=== PATIENT | female | born 1990 | race Caucasian/White ===

== ENCOUNTER 2018-08-10 15:09 | Emergency (ER) | payer SELFPAY ==
--- NOTE | 2018-08-10 16:08 | UC ---
Ear Complaint HPI - HPI Summary HPI Summary: 27 year old female present with 1 week history of left ear pain. Denies fever, chills, ear drainage, tinnitus, hearing loss, vertigo, nasal congestion, runny nose, sore throat, or cough. - History of Current Complaint Chief Complaint: UCEar Stated Complaint: THROAT AND EAR COMPLAINT Time Seen by Provider: 08/10/18 15:57 Hx Obtained From: Patient Hx Last Menstrual Period: iud Pain Intensity: 5 - Allergies/Home Medications Allergies/Adverse Reactions: Allergies Allergy/AdvReac Type Severity Reaction Status Date / Time Penicillins Allergy Hives/Diff. Verified 08/10/18 15:29 Breathing/I tching Home Medications: Home Medications Acetaminophen [Tylenol] 325 mg PO Q8HR PRN 08/10/18 [History Confirmed 08/10/18] Iud 08/10/18 [History] PMH/Surg Hx/FS Hx/Imm Hx Previously Healthy: Yes - Denies significant PMH - Surgical History Surgical History: None - Family History Known Family History: Positive: Non-Contributory - Social History Occupation: Employed Full-time Lives: Alone Alcohol Use: Rare Substance Use Type: None Smoking Status (MU): Never Smoked Tobacco Review of Systems All Other Systems Reviewed And Are Negative: Yes Constitutional: Negative: Fever, Chills Eyes: Negative: Drainage, Eye Redness ENT: Positive: Ear Ache. Negative: Sore Throat, Nasal Discharge, Sinus Congestion, Sinus Pain/Tenderness Respiratory: Negative: Cough Cardiovascular: Positive: Negative Gastrointestinal: Positive: Negative Genitourinary: Positive: Negative Musculoskeletal: Positive: Negative Neurological: Positive: Negative Psychological: Positive: Negative Is Patient Immunocompromised?: No Physical Exam - Summary Physical Exam Summary: GENERAL APPEARANCE: Well developed, well nourished, alert and cooperative, and appears to be in no acute distress. EYES: Conjunctiva clear. No drainage. Vision is grossly intact. EARS: External auditory canals clear, right TM opaque with good cone of light, left TM opaque with few air bubbles noted, no erythema, hearing grossly intact. NOSE: No nasal discharge. THROAT: Pharynx normal. No tonsilar inflammation, swelling, exudate, or lesions. Uvula midline. Oral cavity normal. Teeth and gingiva in good general condition. NECK: Neck supple, non-tender without lymphadenopathy. CARDIAC: Normal S1 and S2. No S3, S4 or murmurs. Rhythm is regular. There is no peripheral edema, cyanosis or pallor. Extremities are warm and well perfused. Capillary refill is less than 2 seconds. Peripheral pulses intact. LUNGS: Clear to auscultation without rales, rhonchi, wheezing or diminished breath sounds. ABDOMEN: Positive bowel sounds. Soft, nondistended, nontender. No guarding or rebound. No masses or hepatosplenomegally. MUSKULOSKELETAL: ROM intact to all extremities. No joint erythema or tenderness. Normal muscular development. Normal gait. SKIN: Skin normal color, texture and turgor with no lesions or eruptions. Triage Information Reviewed: Yes Vital Signs: Initial Vital Signs Temp 99.5 F 08/10/18 15:30 Pulse 72 08/10/18 15:30 Resp 18 08/10/18 15:30 BP 103/69 08/10/18 15:30 Pulse Ox 100 08/10/18 15:30 Vital Signs Reviewed: Yes Ear Complaint Course/Dx - Course Course Of Treatment: 27 year old female present with 1 week history of left ear pain. Denies fever, chills, ear drainage, tinnitus, hearing loss, vertigo, nasal congestion, runny nose, sore throat, or cough. Afebrile. VSS. Exam was remarkable for some air bubbles behind the left TM without erythema. Will treat for a left serous otitis likely from eustachian tube dysfunction with fluticasone nasal spray 2 sprays each nostril twice daily and OTC analgesics. She is to return here or follow up with PCP in 7 days if no improvement. Anticipatory guidance and warning symptoms reviewed with patient. Verbalizes understanding and agrees with POC. - Differential Dx/Diagnosis Differential Diagnosis/HQI/PQRI: Cerumen Impaction, Otitis Externa, Otitis Media , Perforated TM Provider Diagnosis: Acute serous otitis media of left ear Discharge - Sign-Out/Discharge Documenting (check all that apply): Patient Departure All imaging exams completed and their final reports reviewed: No Studies - Discharge Plan Condition: Stable Disposition: HOME Prescriptions: Fluticasone NASAL SPRAY 50MCG* [Flonase NASAL SPRAY 50MCG*] 2 spray BOTH NARES DAILY #1 btl Patient Education Materials: Serous Otitis Media (ED) Referrals: No Primary Care Phys,NOPCP [Primary Care Provider] - Additional Instructions: Your exam showed no evidence of an ear infection. There was a small amount of fluid behind the ear drum which could suggest some eustachian tube dysfunction. Start fluticasone nasal spray 2 sprays each nostril once daily for at least 2 weeks. Use acetaminophen (Tylenol) or ibuprofen (Advil, Motrin) according to directions as needed for pain. Return here or follow up with your primary care provider in 5-7 days if no improvement. Seek immediate medical attention if you have persistent fever greater than 100.5 F, severe headache, persistent vomiting, dizziness, loss of hearing, drainage or bleeding from the ear, or any worsening of symptoms. - Billing Disposition and Condition Condition: STABLE Disposition: Home
== END 2018-08-10 16:15 | disposition home or self-care (01) ==
LOC: UCEAST 15:09
DX: H65.02 Acute serous otitis media, left ear (principal); Z88.0 Allergy status to penicillin
CPT/HCPCS: 99202; G0463

== ENCOUNTER 2018-08-19 14:10 | Emergency (ER) | payer SELFPAY ==
--- NOTE | 2018-08-19 14:16 | UC ---
Throat Pain/Nasal Olegario HPI - HPI Summary HPI Summary: 27 yo female presents with sore throat. Pt tells me that she was seen in the ED on 08/13 for a sore throat and face pain. A CT neck was performed for suspicion of peritonsillar abscess: IMPRESSION: 1. There is asymmetric prominence of the left submandibular gland with a central region of low attenuation and peripheral enhancement within the superior aspect of the left submandibular gland measuring a maximum of 1.9 cm, suspicious for left submandibular sialadenitis with possible abscess. 2. There is thickening and increased enhancement of the pharyngeal mucosal space at the level of the nasopharynx, oropharynx and oral cavity including the bilateral palatine tonsils suspicious for adenoiditis, pharyngitis and tonsillitis. The previously described possible abscess in the superior aspect of the left submandibular gland also borders the left palatine tonsil and therefore peritonsillar abscess is also a consideration. 3. There is mild bilateral level II cervical lymphadenopathy. In the ED she was given clindamycin, steroids, and fluids and sent home with po clindamycin. Her CBC/CMP were unremarkable and blood cultures were negative. I do not see where/if she had a strep culture performed. She is here today with continued sore throat, swelling, pain, and difficulty eating/drinking/opening mouth. She states there has been no change since she was in the ED. She is forcing herself to take her po clindamycin. Denies fever, chills, SOB, chest pain, rash. - History of Current Complaint Stated Complaint: SORE THROAT Time Seen by Provider: 08/19/18 14:16 Hx Obtained From: Patient Hx Last Menstrual Period: iud Severity: Severe Pain Intensity: 10 Pain Scale Used: 0-10 Numeric - Allergies/Home Medications Allergies/Adverse Reactions: Allergies Allergy/AdvReac Type Severity Reaction Status Date / Time Penicillins Allergy Hives/Diff. Verified 08/19/18 14:26 Breathing/I tching PMH/Surg Hx/FS Hx/Imm Hx - Additional Past Medical History Additional PMH: None - Surgical History Surgical History: None - Family History Known Family History: Positive: Non-Contributory - Social History Lives: With Family Alcohol Use: Occasionally Substance Use Type: None Smoking Status (MU): Never Smoked Tobacco Review of Systems All Other Systems Reviewed And Are Negative: Yes Constitutional: Positive: Negative Skin: Positive: Negative Eyes: Positive: Negative ENT: Positive: Sore Throat Respiratory: Positive: Negative Cardiovascular: Positive: Negative Gastrointestinal: Positive: Negative Neurovascular: Positive: Negative Psychological: Positive: Negative Physical Exam - Summary Physical Exam Summary: GENERAL: NAD. WDWN. No pain distress. SKIN: No rashes, sores, lesions, or open wounds. HEENT: Head: AT/NC Eyes: Conjunctiva clear without inflammation or discharge. Ears: Hearing grossly normal. TMs intact, no bulging, erythema, or edema. Nose: Nasal mucosa pink and moist. NTTP maxillary and frontal sinus. Throat: Unable to open jaw more than mildly. Unable to assess posterior pharynx due to trismus. No hoarse voice or muffled voice. Large left submandibular nodule/mass that is TTP. She is tolerating her own secretions well. No drooling. NECK: Supple. Painful LAD L>R CHEST: CTAB. No r/r/w. No accessory muscle use. Breathing comfortably and in no distress. CV: RRR. Without m/r/g. Pulses intact. Cap refill <2seconds NEURO: Alert. PSYCH: Age appropriate behavior. Triage Information Reviewed: Yes Vital Signs: Vital Signs: Temp Pulse Resp BP Pulse Ox 98.7 F 64 18 116/69 100 08/19/18 14:23 08/19/18 14:23 08/19/18 14:23 08/19/18 14:23 08/19/18 14:23 Vital Signs Reviewed: Yes Throat Pain/Nasal Course/Dx - Course Course Of Treatment: I reviewed the CT scan performed in the ED. Pt states no change despite po clinda and has significant trimus on exam today. I called ENT and they will eval pt now in their clinic. Discussed this with pt and she was agreeable with going to see ENT now. - Differential Dx/Diagnosis Provider Diagnosis: Submandibular abscess Discharge - Sign-Out/Discharge Documenting (check all that apply): Patient Departure All imaging exams completed and their final reports reviewed: No Studies - Discharge Plan Condition: Stable Disposition: HOME Referrals: No Primary Care Phys,NOPCP [Primary Care Provider] - Moreno Carvalho MD [Medical Doctor] - As Soon As Possible Additional Instructions: If you develop a fever, shortness of breath, chest pain, new or worsening symptoms - please call your PCP or go to the ED. Please go to ENT at the address below - they will see you now regarding your sore throat and swelling. - Billing Disposition and Condition Condition: STABLE Disposition: Home
[2018-08-19 14:26] VITALS: BP 116/69
== END 2018-08-19 14:47 | disposition home or self-care (01) ==
LOC: UCEAST 14:10
DX: K12.2 Cellulitis and abscess of mouth (principal); Z88.0 Allergy status to penicillin
CPT/HCPCS: 99211; G0463

== ENCOUNTER 2019-01-29 09:01 | Emergency (ER) | payer SELFPAY ==
--- NOTE | 2019-01-29 09:15 | UC ---
Lower Extremity/Ankle HPI - HPI Summary HPI Summary: 28-year-old female comes in with a chief complaint of distal right foot pain. 3 days ago she was stepped on by a horse while she had a shoe on. She had a lot of swelling on the distal foot primarily in the lateral aspect. Pain with ambulation. Swelling is decreasing however she is finding it difficult to maintain full range of motion of her toes. No skin break. No numbness. - History of Current Complaint Stated Complaint: FOOT INJURY Time Seen by Provider: 01/29/19 09:11 Hx Last Menstrual Period: iud - Allergies/Home Medications Allergies/Adverse Reactions: Allergies Allergy/AdvReac Type Severity Reaction Status Date / Time Penicillins Allergy Hives/Diff. Verified 08/19/18 14:26 Breathing/I tching Home Medications: Home Medications NK [No Home Medications Reported] 01/29/19 [History Confirmed 01/29/19] PMH/Surg Hx/FS Hx/Imm Hx Previously Healthy: Yes - Surgical History Surgical History: None - Family History Known Family History: Positive: Non-Contributory - Social History Alcohol Use: Occasionally Substance Use Type: None Smoking Status (MU): Never Smoked Tobacco Review of Systems All Other Systems Reviewed And Are Negative: Yes Constitutional: Positive: Negative Skin: Positive: Negative Eyes: Positive: Negative ENT: Positive: Negative Respiratory: Positive: Negative Cardiovascular: Positive: Negative Gastrointestinal: Positive: Negative Motor: Positive: Other - see hpi Neurovascular: Positive: Negative Musculoskeletal: Positive: Other: - see hpi Neurological: Positive: Negative Psychological: Positive: Negative Is Patient Immunocompromised?: No Physical Exam Triage Information Reviewed: Yes Appearance: Well-Appearing, No Pain Distress, Well-Nourished Vital Signs Reviewed: Yes Eye Exam: Normal Eyes: Positive: Conjunctiva Clear Neck: Positive: Supple Respiratory: Positive: No respiratory distress Neurological: Positive: Alert Psychological: Positive: Age Appropriate Behavior Skin Exam: Normal Lower Extremity Course/Dx - Course Course Of Treatment: [employer] Teacher: Morris Dill C ([id number]) 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 Comparison: No relevant prior exams available on the [facility] for [place]. Technique: AP, lateral, and oblique views RIGHT foot. Report: #. No cortical disruption or suspicious trabecular irregularity to suggest fracture. #. Normal articular alignment. #. Normal soft tissue contours. IMPRESSION: #. Negative exam. <Electronically signed by Morris Dill MD in OV> [id number] Dictated By: Morris Dill MD Dictated Date/Time: 01/29/19931 Transcribed Date/Time: 01/29/19931 Copy to: CC:No Primary Care Phys,NOPCP ; Vj Grace MD [facility] - [facility] Urgent [facility] [address] [address] ph [phone]) ph ) ph ([phone]) End of Report Content I discussed the x-rays with the patient. Nursing placed a postop shoe in clinic patient neurovascular intact after placement of the postop shoe. The plan is to ice it elevated rested and follow-up with sports medicine orthopedics and or physical therapy. - Differential Dx/Diagnosis Provider Diagnosis: Contusion of right foot Discharge ED - Sign-Out/Discharge Documenting (check all that apply): Patient Departure All imaging exams completed and their final reports reviewed: Yes - Discharge Plan Condition: Stable Disposition: HOME Patient Education Materials: Foot Contusion (ED) Forms: *Work Release Referrals: [facility] [Provider Group] Yuval Echevarria MD [Medical Doctor] - Additional Instructions: FOLLOW UP WITH SPORTS MEDICINE OR ORTHOPEDICS. GET RECHECKED SOONER IF YOUR CONDITION WORSENS OR ANY QUESTIONS OR CONCERNS. - Billing Disposition and Condition Condition: STABLE Disposition: Home
[2019-01-29 09:17] VITALS: BP 116/65
== END 2019-01-29 09:57 | disposition home or self-care (01) ==
LOC: UCEAST 09:01
DX: S90.31XA Contusion of right foot, initial encounter (principal); W55.12XA Struck by horse, initial encounter; Y92.9 Unspecified place or not applicable; Z88.0 Allergy status to penicillin
CPT/HCPCS: 99212; G0463